=== PATIENT | female | born 1950 | race Caucasian/White ===

== ENCOUNTER → 2023-09-04 | Outpatient (CLI) | payer MEDICARE ==
--- NOTE | 2023-09-07 13:28 | NM ---
EXAMINATION TYPE: NM DatScan Brain SPECT DATE OF EXAM: 09/04/2023 COMPARISON: NONE HISTORY: Tremor TECHNIQUE: 10 drops of Lugol's solution was administered 1 hour prior to injection as a thyroid bloc saranya agent. After the administration of 4.44 mCi I-123 Ioflupane DaTscan. Images obtained 3 hours p ost injection. SPECT images of the brain were acquired with axial and coronal reconstructions. FINDINGS: The axial SPECT images demonstrate increased background activity and symmetric activity wit hin the bilateral striata. Z score analysis was performed. IMPRESSION: Symmetric appearance with no diagnostic evidence suggestive of idiopathic Parkinson's dis ease or Parkinsonian syndrome.
== END | disposition home or self-care (01) ==
LOC: RADNMMAIN 10:59
PROVIDERS: ATTEND Psychiatry & Neurology Neurology
DX: G25.0 Essential tremor (principal)
CPT/HCPCS: 78803; A9584

== ENCOUNTER 2024-09-08 15:05 | Emergency (ER) | payer MEDICARE ==
[2024-09-08 15:15] VITALS: TEMP 98.1
--- NOTE | 2024-09-08 15:43 | ED ---
Upper Extremity HPI <Preston Herrera - Last Filed: 09/08/24 18:20> - General Source: patient, EMS, RN notes reviewed Mode of arrival: EMS Limitations: no limitations, physical limitation - History of Present Illness MD Complaint: Injury to:: left, shoulder, wrist <Carmen Chan - Last Filed: 09/08/24 19:43> - General Chief Complaint: Fall Stated Complaint: L broken wrist/fall Time Seen by Provider: 09/08/24 15:10 - History of Present Illness Initial Comments: This is a 74-year-old female who presents to the emergency department for a left wrist injury. Patient was in the parking lot and the shopping cart started to roll away from her. She reached out to try to grab it and lost her balance, causing her to fall on her left side. She tried to brace herself with her left hand and ended up injuring her left wrist in the process. Most of the pain is to the left wrist with some discomfort in the left shoulder as well. Denies hitting her head or any loss of consciousness. She is on Plavix for CAD. (Carmen Chan) - Related Data Previous Rx's Medication Instructions Recorded oxyCODONE-APAP 5-325MG [Percocet 1 tab PO Q6HR PRN 3 Days #12 tab 09/08/24 5-325 mg] Allergies Allergy/AdvReac Type Severity Reaction Status Date / Time hydromorphone [From Dilaudid] Allergy Rapid Verified 09/08/24 15:16 Heart Rate Sulfa (Sulfonamide Allergy Unknown Verified 09/08/24 15:16 Antibiotics) codeine AdvReac Rash/Hives Verified 09/08/24 15:16 Review of Systems ROS Other: All systems not noted in ROS Statement are negative. <Preston Herrera - Last Filed: 09/08/24 18:20> ROS Other: All systems not noted in ROS Statement are negative. <Carmen Chan - Last Filed: 09/08/24 19:43> ROS Statement: Those systems with pertinent positive or pertinent negative responses have been documented in the HPI. Past Medical History Past Medical History: Hyperlipidemia, Thyroid Disorder Additional Past Medical History / Comment(s): 2020, triple bypass surgery Past Surgical History: Coronary Bypass/CABG Past Psychological History: Depression Smoking Status: Never smoker Past Alcohol Use History: Rare Past Drug Use History: None Reported <RamirofátimaJanessaCarmen - Last Filed: 09/08/24 19:43> General Exam Limitations: physical limitation General appearance: alert, in no apparent distress Head exam: Present: atraumatic, normocephalic, normal inspection Respiratory exam: Present: normal lung sounds bilaterally. Absent: respiratory distress, wheezes, rales, rhonchi, stridor Cardiovascular Exam: Present: regular rate, normal rhythm, normal heart sounds. Absent: systolic murmur, diastolic murmur, rubs, gallop, clicks Extremities exam: Present: other (Swelling, ecchymosis, and visible deformity to the left wrist. 2+ radial pulses) Neurological exam: Present: alert, oriented X3, CN II-XII intact Psychiatric exam: Present: normal affect, normal mood <Carmen Chan - Last Filed: 09/08/24 19:43> Course Vital Signs 09/08/24 09/08/24 09/08/24 15:08 18:00 18:09 Temperature 98.1 F Pulse Rate 76 93 Respiratory 18 16 Rate Blood Pressure 197/106 O2 Sat by Pulse 95 100 Oximetry 09/08/24 09/08/24 09/08/24 18:13 18:18 18:33 Temperature Pulse Rate 72 71 71 Respiratory 16 16 16 Rate Blood Pressure 199/105 177/106 171/96 O2 Sat by Pulse 98 98 97 Oximetry 09/08/24 18:48 Temperature Pulse Rate 76 Respiratory 16 Rate Blood Pressure 175/98 O2 Sat by Pulse 98 Oximetry Procedures - Orthopedic Joint Reduction Joint #1 Consent Obtained: verbal consent Joint Reduction Location: wrist Analgesia: procedural sedation Technique Used: traction/counter-traction Post Reduction X-Ray Obtained: Yes Post Reduction X-Ray Results: reduced Splint Applied: Yes Patient Tolerated Procedure: well - Procedural Sedation *Procedural Sedation Start Time: 18:11 *Procedural Sedation Stop Time: 18:45 *Risks,benefits, and alternative therapies discussed?: Yes *Patient indicates understanding of risk/benefit discussion?: Yes *Indications: fracture/dislocation reduction *Previous Adverse Reaction to Anesthesia/Sedation?: No * Testing Complete?: No Reason Test Not Complete:: Emergent Situation *ASA Class: II *Mallampati Airway Score: 2 Preparation: nurse monitoring applied, pulse oximeter, capnometry used, supplemental O2 applied IV Propofol Dose (mgs): 75 Complications: none Patient Tolerated Procedure: well <Preston Herrera - Last Filed: 09/08/24 18:20> - Orthopedic Splinting/Casting Injury #1 Side: left Upper Extremity Injury Location: wrist Upper Extremity Immobilizer: sling/shoulder immobilizer, sugar tong splint, fiberglass cast <Carmen Chan - Last Filed: 09/08/24 19:43> Medical Decision Making - Radiology Data Radiology results: report reviewed, image reviewed <Carmen Chan - Last Filed: 09/08/24 19:43> - Medical Decision Making This is a 74 year old female who presents to the emergency department for a left wrist injury. Was pt. sent in by a medical professional or institution? @ -No Did you speak to anyone other than the patient for history? @ -No Did you review nursing and triage notes? @ -Yes, and I agree, it is accurate with regards to the patient's symptoms. Were old charts reviewed? @ -No Differential Diagnosis? @ -Differential Musculoskeletal: Muscular strain, contusion, ligament sprain, fracture, arthritis, septic arthritis, bursitis, cellulitis, muscle spasm, nerve compression, DVT, arterial occlusion, herpes zoster, electrolyte abnormality, tumor.... This is not meant to be in all inclusive list EKG interpreted by me (3pts min.)? @ -Not obtained X-rays interpreted by me (1pt min.)? @ -X-ray of the left hand, left wrist, and left shoulder obtained. My interpretation identifies a distal radius fracture. I do not identify any shoulder fractures. CT interpreted by me (1pt min.)? @ -Not obtained U/S interpreted by me (1pt. min.)? @ -Not obtained What testing was considered but not performed? (CT, X-rays, U/S, labs)? Why? @ -None What meds were considered but not given? Why? @ -None Did you discuss the management of the patient with other professionals? @ -No Did you reconcile home meds? @ -No Was smoking cessation discussed for >3mins.? @ -No Was critical care preformed (if so, how long)? @ -No Were there social determinants of health that impacted care today? How? (Homelessness, low income, unemployed, alcoholism, drug addiction, transportation, low edu. Level, literacy, decrease access to med. care, fci, rehab)? @ -No Was there de-escalation of care discussed even if they declined? (Discuss DNR or withdrawal of care, Hospice)? @ -No What co-morbidities impacted this encounter? (DM, HTN, Smoking, COPD, CAD, Cancer, CVA, Hep., AIDS, mental health diagnosis, sleep apnea, morbid obesity)? @ -CAD Was patient admitted / discharged? @ -Discharged. X-ray of the left hand, left wrist, and left shoulder obtained. Patient found to have a comminuted distal metaphyseal radial fracture with anterior displacement of the fracture fragments. Conscious sedation performed using propofol with ED attending Dr. Herrera. The fracture was reduced and a sugar-tong splint was applied. Postreduction x-rays demonstrate significantly improved alignment. Patient remained neurovascularly intact before and afterwards. Patient monitored in the emergency department until she returned to baseline. Prescription for oxycodone provided for pain control given the extent of her injury. She will otherwise alternate with ibuprofen and Tylenol. She was also given information for orthopedic follow-up and advised to contact them in the morning for a follow-up appointment. Patient discharged home in stable condition. Case discussed with ED attending Dr. Herrera. Return precautions reviewed in depth, the patient is instructed to return to the emergency department with any new, worsening, or concerning symptoms. Patient verbalized understanding. Undiagnosed new problem with uncertain prognosis? @ -None Drug Therapy requiring intensive monitoring for toxicity (Heparin, Nitro, Insulin, Cardizem)? @ -None Were any procedures done? @ -Conscious sedation, fracture reduction, splint application Diagnosis/symptom? @ -Fall, left distal radius fracture Acute, or Chronic, or Acute on Chronic? @ -Acute Uncomplicated (without systemic symptoms) or Complicated (systemic symptoms)? @ -Uncomplicated Side effects of treatment? @ -None Exacerbation, Progression, or Severe Exacerbation] @ -Not applicable Poses a threat to life or bodily function? @ -Will limit her use of the left upper extremity for the meantime. (Carmen Chan) Disposition <Preston Herrera - Last Filed: 09/08/24 18:20> Is patient prescribed a controlled substance at d/c from ED?: Yes When asked, does pt state using other controlled substances?: No If prescribed controlled substance>3 days was MAPS reviewed?: Prescribed <3 Days Time of Disposition: 18:43 <Janessa Chanian - Last Filed: 09/08/24 19:43> Clinical Impression: Fall, Distal radius fracture, left Disposition: HOME SELF-CARE Instructions (If sedation given, give patient instructions): Wrist Fracture in Adults (ED), Fall Prevention for Older Adults (ED), Moderate Sedation (ED), Splint Care (ED), Procedural Sedation (ED) Additional Instructions: Return to the emergency department with any new, worsening, or concerning symptoms. Take Tylenol as needed for pain relief and take the oxycodone sparingly when your pain is the most severe. Elevate the arm when possible. Contact orthopedics as listed below first thing tomorrow morning. Let them know that you were seen in the emergency department and found to have a fractured wrist. They will schedule you for a follow-up appointment. Prescriptions: oxyCODONE-APAP 5-325MG [Percocet 5-325 mg] 1 tab PO Q6HR PRN 3 Days #12 tab PRN Reason: Pain Referrals: Ramo Hennessy MD [Primary Care Provider] - 1-2 days Rubén Antonio MD [STAFF PHYSICIAN] - 1-2 days Panchito Horne DO [Doctor of Osteopathic Medicine] - 1-2 days
--- NOTE | 2024-09-08 16:18 | XR ---
EXAMINATION TYPE: XR wrist complete LT DATE OF EXAM: 09/08/2024 COMPARISON: None HISTORY: Fall deformity pain TECHNIQUE: 4 view left wrist FINDINGS: There is a comminuted fracture distal metaphyseal radius. There is anterior displacement of the distal fracture fragments. Vascular clips are present at the radius. There are prominent soft ti ssues present. If there is pain at the anatomic snuff box, nuclear medicine bone scan can be performed for additiona l evaluation. IMPRESSION: 1. Comminuted distal metaphyseal radial fracture with anterior displacement of the fracture fragment s [facility], Workstation: [facility], 09/08/2024 4:15 PM
--- NOTE | 2024-09-08 16:19 | XR ---
EXAMINATION TYPE: XR shoulder complete LT DATE OF EXAM: 09/08/2024 COMPARISON: NONE HISTORY: Pain TECHNIQUE: Left Shoulder examined in 3 projections. FINDINGS: The humeral head articulates with the glenoid. Acromial humeral joint space is narrowed compatible wi th rotator cuff tear. The acromio-clavicular junction is normal. No acute fractures or dislocations are evident. A follow up study can be performed 7-10 days from acute trauma for continued pain. MRI can be perfor med if soft tissue evaluation would be of benefit. IMPRESSION: 1. No acute osseous shoulder abnormality. 2. Rotator cuff tear appears to be present [facility], Workstation: [facility], 09/08/2024 4:17 PM
--- NOTE | 2024-09-08 16:21 | XR ---
EXAMINATION TYPE: XR hand complete LT DATE OF EXAM: 09/08/2024 COMPARISON: Left wrist same date HISTORY: Fall, pain, deformity TECHNIQUE: 3 view left hand FINDINGS: Distal metaphyseal radial fracture is evident. Please see left wrist dictation same date Left hand: Diffuse joint space narrowing of the proximal distal interphalangeal joint spaces is prese nt. No acute fracture or dislocations within the hand are evident. Soft tissues of the hand appear no rmal Follow-up imaging of the hand can be performed 7-10 days from acute trauma for continued pain IMPRESSION: 1. No acute osseous abnormality within the hand. 2. Distal metaphyseal radial fracture. Please see left wrist dictation same date [facility], Workstation: [facility], 09/08/2024 4:19 PM
[2024-09-08] MEDS: KETOROLAC 15 MG/ML 1 ML VIAL IVP STA ×2 (17:25→19:07)
[2024-09-08] MEDS: SODIUM CHLORIDE 0.9% 1,000 ML IV ONE (17:26)
[2024-09-08] MEDS: PROPOFOL 10 MG/ML 20 ML VIAL IV ONE (18:11)
[2024-09-08 18:13] VITALS: RESP 16
--- NOTE | 2024-09-08 18:50 | XR ---
EXAMINATION TYPE: XR wrist limited LT DATE OF EXAM: 09/08/2024 COMPARISON: Earlier exam HISTORY: Post reduction, fracture distal radius TECHNIQUE: 2 view left wrist FINDINGS: Images were obtained through the fiberglass cast. Previous fracture has largely been reduce d. No new fracture evident. IMPRESSION: 1. Improved alignment and positioning of the distal radial metaphyseal fracture. [facility], Workstation: [facility], 09/08/2024 6:48 PM
[2024-09-08] MEDS: oxyCODONE-APAP 5-325MG 1 EACH TAB PO STA (19:08)
[2024-09-08 19:18] VITALS: BP 175/98; PULSE 76
== END 2024-09-08 19:32 | disposition home or self-care (01) ==
LOC: EC 15:05
DX: S52.592A Other fractures of lower end of left radius, initial encounter for closed fracture (principal); Z88.5 Allergy status to narcotic agent; Z88.2 Allergy status to sulfonamides; W19.XXXD Unspecified fall, subsequent encounter; Y92.481 Parking lot as the place of occurrence of the external cause
CPT/HCPCS: 73030; 73100; 73110; 73130; 99284; 96374; 96376; 96361; 99152; 99153; 25605; J1885; J2704

== ENCOUNTER → 2024-09-13 | Outpatient (CLI) | payer MEDICARE ==
--- NOTE | 2024-09-13 14:40 | CT ---
EXAMINATION TYPE: CT wrist LT wo con DATE OF EXAM: 09/13/2024 2:32 PM COMPARISON: . 09/08/2024. CLINICAL INDICATION: Female, 74 years old with history of S52.552A FRACTURE; PH[facility], Fall on halloween, left wrist fx. Pre-surgical. Pain. TECHNIQUE: Axial images were obtained of the CT wrist LT wo con, Additional coronal and sagittal refo rmatted images and soft tissue and bone window were obtained for review. Contrast used: mL of , (None if empty) Oral contrast used: (None if empty) CT DLP: 122.4 mGycm, Automated exposure control for dose reduction was used. FINDINGS: Comminuted Distal radius fracture with extension into the wrist and distal radioulnar joint . No additional fractures. Diffuse osseous demineralization. Surgical clips are present. There is sof t tissue edema throughout the arm. Catheter in place. IMPRESSION: 1. Comminuted distal radius fracture with extension into the distal radius and distal radioulnar rob nt. 2. Diffuse osseous demineralization. [facility], , 09/13/2024 2:38 PM
== END | disposition home or self-care (01) ==
LOC: RADCTMAIN 13:55
PROVIDERS: ATTEND Orthopaedic Surgery
DX: S52.592A Other fractures of lower end of left radius, initial encounter for closed fracture (principal)